=== PATIENT | male | born 1980 ===

== ENCOUNTER 2024-07-14 09:32 | Outpatient (CLI) | payer BC, SELFPAY ==
--- NOTE | ~2024-07-14 | MR_ITS ---
EXAMINATION: MR clavicle LT wo con DATE: 07/14/2024 10:39 INDICATION: Left shoulder pain TECHNIQUE: MRI of the left clavicle was obtained without intravenous contrast. Sequences included axi al, sagittal and coronal fluid sensitive FSE STIR, sagittal and coronal T1-weighted FSE and axial T1- weighted FS FSE. COMPARISON: None. FINDINGS: Old healed fracture deformity at the distal left clavicle lateral to the insertion of the coracoclavi cular ligament. Bone marrow signal is normal throughout with no reactive edema, acute fracture or pat hologic marrow replacing process. Mild left acromioclavicular osteoarthritis. Left glenohumeral joint space appears normal. The left glenoid labrum and the rotator cuff tendons the left shoulder appear normal although evaluation is more limited on the current study which includes the entire clavicle th an on a standard smaller field of view dedicated MRI of the shoulder. Physiologic amount fluid in the left glenohumeral and acromioclavicular joint spaces. No abnormal fluid signal in the subacromial/charles bdeltoid bursa to suggest bursitis. No muscle atrophy or abnormal muscle signal at the shoulder girdl e are visualized portions of the left chest wall. The brachial plexus appears unremarkable. No pathol ogically enlarged left subpectoral or axillary lymphadenopathy. Mild facet osteoarthritis at the visu alized left side of the cervical spine. Disc heights are normal. Mild disc bulges at C3-C4 and C4-C5 resulting in minimal central canal stenosis. IMPRESSION: 1. Old healed fracture of the lateral left clavicle and mild left chronic clavicular osteoarthritis. Otherwise unremarkable left shoulder. 2. Minimal cervical spondylosis. Reviewed, dictated and finalized at location A. ENTARY [employer] SPECIALIST IMPRESSION: 1. Old healed fracture of the lateral left clavicle and mild left chronic clavi cular osteoarthritis. Otherwise unremarkable left shoulder. 2. Minimal cervical spondylosis.
== END 2024-07-14 09:33 | disposition home or self-care (01) ==
LOC: MICIMG 09:35
PROVIDERS: PCP Physician Assistant Surgical; Visit Provider Physician Assistant Surgical
DX: M25.512 Pain in left shoulder (principal); M47.892 Other spondylosis, cervical region
CPT/HCPCS: 73218